=== PATIENT | female | born 2000 | race African-American/Black ===

== ENCOUNTER 2021-05-14 02:25 | Emergency (ER) | payer OTHER ==
[2021-05-14] MEDS ORDERED: Ondansetron ODT 4 MG TAB PO PRN (03:44)
[2021-05-14] MEDS ORDERED: Acetaminophen 325 MG TAB PO PRN (03:45)
[2021-05-14] MEDS ORDERED: Acetaminophen 325 MG TAB PO SCH (04:00)
== END 2021-05-14 03:07 | disposition admitted as inpatient to this hospital (09) ==
LOC: CSHERS 02:25
DX: O9A.311 Physical abuse complicating pregnancy, first trimester (principal); Z3A.33 33 weeks gestation of pregnancy
CPT/HCPCS: 99284

== ENCOUNTER 2021-06-13 14:25 | Day surgery (SDC) | payer OTHER ==
[2021-06-13 15:23] VITALS: BMI 35.4
[2021-06-13] MEDS ORDERED: hydrALAZINE 20 MG/ML VIAL SLOW IVP PRN (16:10)
== END 2021-06-13 16:25 | disposition home or self-care (01) ==
LOC: CSHLD/OP 14:25
PROVIDERS: ATTEND Obstetrics & Gynecology
DX: O26.893 Other specified pregnancy related conditions, third trimester (principal); R10.2 Pelvic and perineal pain; O98.313 Other infections with a predominantly sexual mode of transmission complicating pregnancy, third trimester; A60.00 Herpesviral infection of urogenital system, unspecified; O34.219 Maternal care for unspecified type scar from previous cesarean delivery; Z3A.37 37 weeks gestation of pregnancy; Z79.899 Other long term (current) drug therapy; Z88.5 Allergy status to narcotic agent

== ENCOUNTER 2021-06-26 13:26 | Outpatient (CLI) | payer OTHER ==
[2021-06-27 07:40] LABS: SARS-CoV-2 PCR by NAA Not Detected (NotDetected)
== END 2021-06-26 13:27 | disposition home or self-care (01) ==
LOC: CSHLAB 13:26
PROVIDERS: ATTEND Student in an Organized Health Care Education/Training Program
DX: Z20.822 Contact with and (suspected) exposure to COVID-19 (principal)
CPT/HCPCS: U0003; U0005

== ENCOUNTER 2021-06-28 18:00 | Inpatient (IN) | payer OTHER ==
[2021-06-29 00:02] VITALS: BMI 35.9
[2021-06-29] MEDS ORDERED: Bicitra 30 ML UDCUP PO PRN (00:38)
[2021-06-29] MEDS ORDERED: Famotidine/PF 20 mg/2ml Vial SLOW IVP PRN (00:38)
[2021-06-29] MEDS ORDERED: Ondansetron PF 4 MG/2 ML Vial IVP PRN (00:38)
[2021-06-29] MEDS ORDERED: hydrALAZINE 20 MG/ML VIAL SLOW IVP PRN ×2 (00:38→10:12)
[2021-06-29] MEDS ORDERED: Promethazine HCl 25 MG/ML VIAL IM PRN ×3 (00:38→10:12)
[2021-06-29] MEDS ORDERED: Acetaminophen 500 MG TAB PO PRN (00:38)
[2021-06-29] MEDS ORDERED: CEFAZOLIN 2 GM in Premix Bag 1 BAG IVPB SCH (00:45)
[2021-06-29] MEDS ORDERED: Lactated Ringer's 1,000 ML IV SCH (01:00)
[2021-06-29 01:50] LABS: Hemoglobin 10.5 g/dL (12.0-15.5); Mean Corpuscular HGB CONC 33.1 g/dL (32.0-36.0); Mean Corpuscular Hemoglobin 26.9 pg (27.0-33.0); Mean Corpuscular Volume 81.3 fl (81.6-98.3); Mean Platelet Volume 9.5 fl (7.4-10.4); Platelet Count 303 10x3/uL (150-450); RBC Distribution Width 14.2 % (11.5-14.5); White Blood Cell (WBC) Count 8.3 10x3/uL (3.5-10.5)
[2021-06-29 02:37] LABS: Syphilis Antibody Nonreactive (Nonreactive); Syphilis Antibody Index 0.07 S/CO (<1.00 Non-Reactive)
[2021-06-29 02:38] LABS: Hep B Surf Ag Non-Reactive S/CO (NonReactive)
[2021-06-29 02:46] LABS: HBSAg Index 0.21 S/CO (0-0.99)
[2021-06-29] MEDS ORDERED: ePHEDrine Sulfate 50 MG/10 ML VIAL ONE (07:00)
[2021-06-29] MEDS ORDERED: Morphine PF 10 MG/10 ML VIAL ONE (07:00)
[2021-06-29] MEDS ORDERED: Dexamethasone 4 mg/ml Vial ONE (07:01)
[2021-06-29] MEDS ORDERED: Ketorolac Tromethamine 30 MG/ML VIAL ONE (07:01)
[2021-06-29] MEDS ORDERED: Ondansetron PF 4 MG/2 ML Vial ONE (07:01)
[2021-06-29] MEDS ORDERED: Phenylephrine 10 MG/ML VIAL ONE ×2 (07:01→07:03)
[2021-06-29] MEDS ORDERED: Oxytocin 10 UNITS/ML VIAL ONE (07:01)
[2021-06-29] MEDS ORDERED: PHENYLEPHRINE-NS 100 MCG/ML 10 ML SYRINGE ONE (07:54)
[2021-06-29] MEDS ORDERED: Naloxone HCl 0.4 mg/ml Vial IV PRN (09:05)
[2021-06-29] MEDS ORDERED: diphenhydrAMINE 50 MG/ML VIAL IVP PRN (09:05)
[2021-06-29] MEDS ORDERED: Ondansetron HCl/PF 4 MG/2 ML Vial IVP PRN (09:05)
[2021-06-29] MEDS ORDERED: Hydrocerin (Eucerin) Cream 120 gm Jar TOP PRN (09:05)
[2021-06-29] MEDS ORDERED: Fentanyl 100 MCG/2 ML VIAL SLOW IVP PRN (09:05)
[2021-06-29] MEDS ORDERED: Ketorolac Tromethamine 30 MG/ML VIAL IVP PRN (09:05)
[2021-06-29] MEDS ORDERED: Promethazine HCl 25 MG SUPP PR PRN (09:05)
[2021-06-29] MEDS ORDERED: Meperidine HCl/PF 25 MG/ML VIAL SLOW IVP PRN (09:05)
[2021-06-29] MEDS ORDERED: Naloxone HCl 0.4 mg/ml Vial IVP PRN ×2 (09:05)
[2021-06-29] MEDS ORDERED: Ketorolac Tromethamine 30 MG/ML VIAL IVP SCH (09:15)
[2021-06-29] MEDS ORDERED: Communication Order-Pharmacy FS SCH (09:15)
[2021-06-29] MEDS ORDERED: Simethicone Chewable 80 MG TAB PO PRN ×2 (09:45→10:12)
[2021-06-29] MEDS ORDERED: NS w/ Oxytocin 30 units 500 ML IV SCH ×2 (09:45→10:12)
[2021-06-29] MEDS ORDERED: Lanolin Ointment 7 GM TUBE TOP PRN (09:45)
[2021-06-29] MEDS ORDERED: Methylergonovine 0.2 MG/ML VIAL IM PRN ×2 (09:45→10:12)
[2021-06-29] MEDS ORDERED: Bisacodyl 10 MG SUPP PR PRN ×2 (09:45→10:12)
[2021-06-29] MEDS ORDERED: Misoprostol 200 MCG TAB PR PRN ×2 (09:45→10:12)
[2021-06-29] MEDS ORDERED: Boostrix 0.5 ML (Tdap) VIAL IM ONE (10:12)
[2021-06-29] MEDS: Ondansetron PF 4 MG/2 ML Vial IVP PRN ×2 (10:50→16:57)
[2021-06-29] MEDS: Acetaminophen 325 MG TAB PO SCH ×3 (15:18→23:22)
[2021-06-29] MEDS ORDERED: Docusate 100 MG CAP PO SCH (21:00)
[2021-06-29] MEDS ORDERED: Ferrous Sulfate 325 MG TAB PO SCH ×2 (21:00)
[2021-06-29] MEDS ORDERED: HYDROcodone/Acetaminophen 5/325 mg Tablet PO PRN (21:15)
[2021-06-29] MEDS: diphenhydrAMINE 25 MG CAP PO PRN (21:22)
[2021-06-29] MEDS: Docusate 100 MG CAP PO SCH (23:22)
[2021-06-30] MEDS: Acetaminophen 325 MG TAB PO SCH ×6 (03:49→22:24)
[2021-06-30 06:17] LABS: Hemoglobin 9.9 g/dL (12.0-15.5); Mean Corpuscular HGB CONC 33.8 g/dL (32.0-36.0); Mean Corpuscular Hemoglobin 27.2 pg (27.0-33.0); Mean Corpuscular Volume 80.5 fl (81.6-98.3); Mean Platelet Volume 9.3 fl (7.4-10.4); Platelet Count 281 10x3/uL (150-450); RBC Distribution Width 14.2 % (11.5-14.5); Red Blood Cell (RBC) Count 3.64 10x6/uL (3.90-5.03); White Blood Cell (WBC) Count 14.7 10x3/uL (3.5-10.5)
[2021-06-30] MEDS ORDERED: Prenatal Vitamin 1 TAB PO SCH ×2 (09:00)
[2021-06-30] MEDS ORDERED: Boostrix 0.5 ML (Tdap) VIAL IM ONE (09:45)
[2021-06-30] MEDS: Ferrous Sulfate 325 MG TAB PO SCH (09:47)
[2021-06-30] MEDS: Prenatal Vitamin 1 TAB PO SCH (09:47)
[2021-06-30] MEDS: Docusate 100 MG CAP PO SCH ×2 (09:47→20:28)
[2021-06-30] MEDS: valACYclovir 500 MG TAB PO SCH (09:47)
[2021-06-30] MEDS: diphenhydrAMINE 25 MG CAP PO PRN (09:52)
[2021-06-30] MEDS: Ibuprofen 800 MG TAB PO SCH ×3 (09:53→20:23)
[2021-06-30] MEDS ORDERED: Ibuprofen 800 MG TAB PO PRN (15:00)
[2021-07-01] MEDS: Ibuprofen 600 MG TAB PO SCH ×2 (02:46→09:26)
[2021-07-01] MEDS: Acetaminophen 325 MG TAB PO SCH ×3 (02:47→11:57)
[2021-07-01 07:48] VITALS: BP 126/72; TEMP 97.8
[2021-07-01] MEDS: valACYclovir 500 MG TAB PO SCH (09:26)
[2021-07-01] MEDS: Prenatal Vitamin 1 TAB PO SCH (09:26)
[2021-07-01] MEDS: Docusate 100 MG CAP PO SCH (09:26)
[2021-07-01] MEDS: Ferrous Sulfate 325 MG TAB PO SCH (09:26)
== END 2021-07-01 13:35 | disposition home or self-care (01) | DRG 787 ==
LOC: CSHLD 22:44 → CSHPP 06-29 13:07
PROVIDERS: ADMIT Student in an Organized Health Care Education/Training Program; ATTEND Student in an Organized Health Care Education/Training Program
PROC: 10907ZC Drainage of Amniotic Fluid, Therapeutic from Products of Conception, Via Natural or Artificial Opening (ICD-10-PCS; principal; 2021-06-29)
PROC: 10D00Z1 Extraction of Products of Conception, Low, Open Approach (ICD-10-PCS; 2021-06-29)
DX: O34.211 Maternal care for low transverse scar from previous cesarean delivery (principal); O98.52 Other viral diseases complicating childbirth; O99.344 Other mental disorders complicating childbirth; O99.02 Anemia complicating childbirth; D52.9 Folate deficiency anemia, unspecified; Z3A.39 39 weeks gestation of pregnancy; Z37.0 Single live birth; F31.9 Bipolar disorder, unspecified; F90.9 Attention-deficit hyperactivity disorder, unspecified type; B00.9 Herpesviral infection, unspecified
CPT/HCPCS: 36415; 51702; 85027; 86780; 86850; 86900; 86901; 87340; J0690; J1100; J1885; J2274; J2370; J2405; J2550; J2590; S0028